=== PATIENT | female | born 1985 | race Caucasian/White ===

== ENCOUNTER 2021-09-13 22:36 | Inpatient (IN) | payer OTHER, SELFPAY ==
[2021-09-13 22:10] VITALS: BP 133/74; PULSE 96
[2021-09-13 22:11] VITALS: TEMP 36.5
[2021-09-13 22:15] VITALS: BMI 34.1
[2021-09-13 22:30] LABS: ROM Internal Control Test YES-OK TO RESULT pt. (Internal QC)
[2021-09-13 22:31] LABS: ROM Patient Test POSITIVE (Negative)
[2021-09-13] MEDS: Lactated Ringers 1,000 ML 999 ML IV (22:50)
[2021-09-13 22:53] VITALS: BP 125/74; PULSE 96; RESP 16; TEMP 37.2; O2SAT 98
[2021-09-13 22:54] VITALS: BP 125/74; PULSE 103; PULSE 95; O2SAT 98
[2021-09-13 23:07] LABS: Absolute Lymphocyte Count 2.49 X10^3/uL (0.83-4.51); Absolute Neutrophil Count 7.4 X10^3/uL (2.0-7.7); Basophil# 0.04 X10^3/uL; Basophil% 0.4 % (0-1); Eosinophil# 0.03 X10^3/uL; Eosinophils% 0.3 % (0-5); Hematocrit 34.5 % (37-47); Hemoglobin 10.6 g/dL (12.0-15.0); Lymphocyte # 2.49 X10^3/ul (0.83-4.51); Lymphocyte % 23.1 % (19-41); Mean Corp Hgb Conc 30.7 g/dL (32-36); Mean Corpuscular Hgb 24.3 pg (27.0-32.0); Mean Corpuscular Volume 78.9 fL (81-99); Mean Platelet Vol. 11.2 fl (6.2-12.0); Monocyte# 0.76 X10^3/uL; NRBC Flagged by Analyzer 0 % (0-5); Neutrophil # 7.41 X10^3/uL (2.7-7.7); Neutrophil % 68.6 % (47-70); Platelet Count 198 K/mm3 (150-450); RBC Distribution Width CV 14.6 % (11.6-14.6); RBC Distribution Width SD 41.9 fl (35.1-43.9); Red Blood Count 4.37 M/mm3 (4.2-5.4); White Blood Count 10.8 K/mm3 (4.4-11.0)
--- NOTE | 2021-09-13 23:30 | PCM.HP.BLA ---
History and Physical Date of Admission: 09/13/21 Pre-Op History and Physical ? HPI: The patient is a 35 year old female presenting for pre-operative visit. She is scheduled for , for h/o perineal trauma from last delivery, desires elective primary c/s on 09/15/21. Procedure discussed along with risks, benefits and complications. Other alternatives discussed for management. Consent form signed? Yes. ? ? PAST MEDICAL HISTORY PAST MEDICAL HISTORY Diagnosis Date ? Elevated glucose 06/28/2021 ? 06/28/21- elevated 1 hour- 3 hour pending. Colette Lambert APRN.MARCELLE ? Gestational diabetes mellitus, class A1 12/15/2016 ? Perineal repair breakdown 05/18/2017 ? ? PAST SURGICAL HISTORY PAST SURGICAL HISTORY Procedure Laterality Date ? D&C, DIAG AND/OR THERAPEUTIC ? 10/2020 ? INSERTION OF IUD ? ? ? removed ? PAST SURGICAL HISTORY OF ? ? ? wisdom teeth ? REPAIR VAGINAL PERINEUM PERINEORRAPHY ? 2017 ? ? ? CURRENT MEDICATIONS Current Outpatient Medications Medication Sig Dispense Refill ? blood sugar diagnostic test strip 1 Strip four times daily. Use as instructed 120 Strip 9 ? Lancets lancets 1 Each four times daily. Use as instructed 120 Each 9 ? Uwdthnzt-By-Orw-Fe-FA ( VITAMIN) tab Take 1 tablet by mouth once daily. 30 tablet 11 ? No current facility-administered medications for this visit. ? ? ALLERGIES: Patient has no known allergies. ? PERSONAL HISTORY: SOCIAL HISTORY Social History ? Tobacco Use ? Smoking status: Never Smoker ? Smokeless tobacco: Never Used Vaping Use ? Vaping Use: Never used Substance Use Topics ? Alcohol use: No ? Drug use: No ? FAMILY HISTORY: FAMILY HISTORY FAMILY HISTORY Problem Relation Age of Onset ? Breast Cancer Mother 50 ? Heart Attack Father ? ? No Known Problems Sister ? ? No Known Problems Sister ? ? Stroke Maternal Grandmother ? ? No Known Problems Maternal Grandfather ? ? Alzheimer's Disease Paternal Grandmother ? ? No Known Problems Paternal Grandfather ? ? No Known Problems Daughter ? ? ? REVIEW OF SYMPTOMS: GENERAL: denies fevers or chills ENDOCRINOLOGY: has not been on steroids Cardiology : denies palpitations or chest pain Respiratory: denies SOB or cough Hematology: denies history of prolonged bleeding or easy bruising or VTE Allergy: Denies history of personal or family history of allergy to anesthesia ? PHYSICAL EXAMINATION: ? VITALS: Blood pressure 134/82, weight 170 lb (77.1 kg), last menstrual period 12/16/2020, unknown if currently . ? GENERAL: The patient is well nourished, well hydrated in no acute distress. , The patient is oriented to time, place, and person. NECK: Supple. No lynphadenopathy, normal thyroid, no thyromegaly. LUNGS: Clear to auscultation bilaterally. no wheezes, rhonchi or rales HEART: Regular rate and rhythm, Normal heart sounds and No murmurs or gallops GENITALIA: Normal external genitalia, Urethral meatus normal, Bladder nontender, normal vagina and normal vaginal tone, normal cervix, normal uterus, size and consistency, normal adnexa without masses or tenderness and perineum WNL WET PREP: Not indicated ? IMPRESSION: Estimated Date of Delivery: 09/22/21 35 YOF , EFW larger than last delivery and h/o perineal trauma, delayed healing, desires primary c/s ? PLAN: The risks/benefits/alternatives and personal involved for the planned primary c/s were reviewed with the patient. Her questions were answered to her satisfaction and she desires to proceed. Consent was signed. I reviewed with her postop instructions and expectations. ? ? I have reviewed and updated past medical and surgical history, medications and allergies Sandra Guerrero M.D.
[2021-09-13] MEDS: Sodium Citrate/Citric Acid 30 ML UDC PO (23:48)
[2021-09-13] MEDS: Cefazolin 2 GM in 0.9% Normal Saline 100 ML IV (23:55)
[2021-09-14] VITALS (18 sets, daily range): BP systolic 99–130; BP diastolic 33–74; PULSE 71–88; RESP 13–28; TEMP 36.1–36.8; O2SAT 96–100
--- NOTE | 2021-09-14 00:43 | OP.PCM_ITS ---
Details Operative Information Date of Procedure: 09/14/21 Pre-Operative Diagnosis: gdma 1, h/o maternal laceration, elective primary cs, SROM, Post-Operative Diagnosis: same, live male Indications Narrative: h/o perineal laceration with previous delivery delayed wound healing, EFW larger then previous, GDMA1, elecative primary cs Classification: Scheduled Procedure Type: low transverse audiometrist #1: Simin Graham Type of Anesthesia: Spinal Antibiotic Given: Ancef 2 grams IV x1 Drain: Anderson to straight drain Estimated Blood Loss: 600 Fluids Replaced: 1000 Procedure Start Time: 00:08 Procedure Stop Time: 00:44 Time of Delivery: 00:12 Findings Description of Procedure: After informed consent was obtained the patient was taken the operating room she was given spinal anesthesia. She was then placed in the supine position. She was prepped and draped in the normal sterile fashion. Anesthesia was found to be adequate. At this time a Pfannenstiel skin incision was made with a knife was carried down to the underlying layer of the fascia. The fascial incision was then extended laterally using curved Cherry scissor. Attention was then turned to the superior aspect of the fascial edge was grasped with 2 straight [place] clamps tented up and the rectus muscle dissected off sharply using curved Cherry scissor. Attention was then turned to the inferior aspect where again Ashli clamps were placed in the rectus muscles were tented up and the fascia was dissected off sharply using the curved Cherry scissor. Rectus muscles were then in the midline bluntly and peritoneum was entered bluntly. Gentle opposing traction was placed. At this time the vesicouterine peritoneum was identified. Scalpel was used to make a uterine incision in a low transverse fashion. The uterus was then entered bluntly gentle opposing traction was placed to extend this incision. Membranes were ruptured clear. 's head was brought to the uterine incision- nuchal x3 noted- reduced and the rest of infant was delivered atraumatically. delayed cord clamping. mouth and nose suctioned. Cord was clamped and cut infant was handed to the waiting nursery team. The Placenta was removed from the uterus. The uterus was then removed from the abdominal cavity. The uterus was cleared of all clots and debris using a lap. At this time the uterine incision was reapproximated using #1 Vicryl in a running locked fashion followed by a second layer with 1-0 vicryl. Hemostasis was appreciated. Posterior cul-de-sac was then cleared of all clots and debris. Uterus was placed back in the abdominal cavity. Gutters were cleared of all clots and debris. Uterine incision was reevaluated and noted to be of excellent hemostasis. At this time the peritoneum and muscle were grasped with Kellys reapproximated using #2 Vicryl suture in a running fashion. Fascia was then reapproximated using #1 Vicryl in a running fashion. Subcu layer was reapproximated with #2 0 plain gut suture in an interrupted fashion. Subcu layer was closed using 4-0 Monocryl in a subcu fashion. Dry sterile dressing was applied. Instrument lap needle count correct ?2. Anticipated normal postoperative course. Presentation: Positive for Vertex Amniotic Membrane Rupture Type: Spontaneous Amniotic Fluid Description: Clear Placental Delivery Description: Expressed Placenta Disposition: [facility] Cord Vessel Description: 3 Vessels Cord Entanglement: - (around neck x3- tight) Nuchal Cord Compression: Without compression A Gender: Male (1 minute): 8 (5 minute): 10 Delayed Cord Clamping: Yes Complications Risks of Surgery Discussed w/Patient: Bleeding, Anesthesia Risks, Infection and Injury to surrounding structure(s) including bowel and bladder
[2021-09-14] MEDS: Oxytocin 30 units/NS 500 ml 30 UNITS/500 ML IV.SOLN 167 UNITS IV (00:55)
[2021-09-14 01:15] LABS: Bedside Glucose 74 mg/dL (74-106)
[2021-09-14 01:15] LABS: Bedside Glucose 80 mg/dL (74-106)
[2021-09-14] MEDS: Ketorolac 30 MG/ML Syringe IV ×3 (03:11→21:01)
[2021-09-14] MEDS: Acetaminophen 500 MG Tablet 1000 MG PO ×4 (03:11→23:41)
[2021-09-14] MEDS: Lactated Ringers 1,000 ML 100 ML IV (03:55)
[2021-09-14] MEDS: Senna/Docusate Sodium 1 Tablet PO (09:08)
[2021-09-14] MEDS: 0.9% Saline Lock 10 ML Syringe IV ×2 (09:09→21:01)
--- NOTE | 2021-09-14 18:51 | NURSING ---
held toradol due to low urine output after mclaughlin d/c'd. Encouraged po fluids.
[2021-09-15 01:20] VITALS: BP 124/67; PULSE 74; RESP 14; TEMP 36.5; O2SAT 98
[2021-09-15] MEDS: Ibuprofen 600 MG Tablet PO ×4 (03:12→21:33)
[2021-09-15] MEDS: Acetaminophen 500 MG Tablet 1000 MG PO ×3 (05:55→18:20)
[2021-09-15 06:28] LABS: Hematocrit 28.6 % (37-47); Hemoglobin 8.7 g/dL (12.0-15.0); Mean Corp Hgb Conc 30.4 g/dL (32-36); Mean Corpuscular Hgb 24.4 pg (27.0-32.0); Mean Corpuscular Volume 80.1 fL (81-99); Mean Platelet Vol. 11.1 fl (6.2-12.0); Platelet Count 161 K/mm3 (150-450); RBC Distribution Width CV 14.6 % (11.6-14.6); RBC Distribution Width SD 42.6 fl (35.1-43.9); Red Blood Count 3.57 M/mm3 (4.2-5.4); White Blood Count 10.8 K/mm3 (4.4-11.0)
[2021-09-15 06:41] LABS: Bedside Glucose 93 mg/dL (74-106)
--- NOTE | 2021-09-15 06:59 | NURSING ---
All charting by Morales Puente RN reviewed by this preceptor RN.
--- NOTE | 2021-09-15 07:44 | PCM.PN.OB ---
Subjective Subjective Pain well controlled. Average lochia. Positive flatus no bowel movement yet. Ambulating and tolerating regular diet. Objective Data Objective Data Vital Signs: Vital Signs Temp Pulse Resp BP Pulse Ox O2 Del Method 97.7 F L 74 14 124/67 H 98 Room Air 09/15/21 01:20 09/15/21 01:20 09/15/21 01:20 09/15/21 01:20 09/15/21 01:20 09/15/21 01:20 Oxygen Delivery Method Room Air Weight: 76.657 kg Body Mass Index (BMI) 34.1 Intake & Output: Intake and Output for Last 24 Hours 09/13/21 09/14/21 09/15/21 23:59 23:59 23:59 Intake Total 2151.67 / 2151.67 Output Total 1100 / 1100 Balance 1051.67 / 1051.67 Lab / Micro Data Result Diagrams: 09/15/21 06:20 Labs: Laboratory Results - last 24 hr 09/15/21 05:58: POC Glucose 93 09/15/21 06:20: WBC 10.8, RBC 3.57 L, Hgb 8.7 L, Hct 28.6 L, MCV 80.1 L, MCH 24.4 L, MCHC 30.4 L, RDW Std Deviation 42.6, RDW Coeff of Kush 14.6, Plt Count 161, MPV 11.1 Micro: Microbiology 09/13/21 22:55 Nasal Secretion SARS-CoV-2 Antigen (Rapid) - Final Physical Exam Const alert General Appearance: cooperative GI GI Narrative: soft, moderate distention, fundus firm, appropriately tender. Abdominal bandage clean dry and intact Assessment & Plan (1) delivery delivered: PLAN: Postoperative day #2 status post primary section. Patient and are doing well. Patient is working on breast-feeding. She desires discharge home today.
--- NOTE | 2021-09-15 07:45 | PCM.DC.SUM ---
Providers Date of Admission: 09/13/21 Primary Care Physician: Shelby Primary Care Phys Reason For Visit: LABOR Diagnosis Discharge Diagnosis (1) delivery delivered: Status: Acute Code(s): O82 - Encounter for delivery without indication Plan: Postoperative day #2 status post primary section. Patient and are doing well. Patient is working on breast-feeding. She desires discharge home today. Medications at Discharge Home Medications ndnyrkkf-dcy-Vj-FA 1 mg tablet 1 tab PO DAILY 09/13/21 ferrous sulfate 325 mg (65 mg iron) tablet (FeroSul) 325 mg PO DAILY #30 tabs 09/15/21 ibuprofen 600 mg tablet 600 mg PO Q6H PRN PRN pain #60 TABLETS 09/15/21 Hospital Course Operations - (Primary low transverse section on 09/13/2021) Procedures None Summary of Care Provided Hospital Course: 35-year-old multigravida admitted for spontaneous labor. Desired section due to perineal trauma and delayed wound healing after her last delivery. The primary section was performed without difficulty on 09/13/2021. She had mild acute blood loss anemia superimposed on chronic antepartum anemia. Blood loss was appropriate for surgery. She was discharged home on postoperative day #2 with routine instructions and prescriptions. Physical Exam Const alert General Appearance: cooperative GI GI Narrative: soft, moderate distention, fundus firm, appropriately tender. Abdominal bandage clean dry and intact Weight / BMI Weight Weight: 76.657 kg Body Mass Index (BMI) 34.1 ABG / Lab / Microbiology Data Result Diagrams: 09/15/21 06:20 Laboratory: Laboratory Results - last 24 hr 09/15/21 05:58: POC Glucose 93 09/15/21 06:20: WBC 10.8, RBC 3.57 L, Hgb 8.7 L, Hct 28.6 L, MCV 80.1 L, MCH 24.4 L, MCHC 30.4 L, RDW Std Deviation 42.6, RDW Coeff of Kush 14.6, Plt Count 161, MPV 11.1 Microbiology: Microbiology 09/13/21 22:55 Nasal Secretion SARS-CoV-2 Antigen (Rapid) - Final Meaningful Use Info Meaningful Use Diagnoses (Choose all that apply): None applicable Discharge Plan Admission Admit Date/Time: 09/13/21 22:36 Primary Reason for Your Visit: Attending Provider: Kayla Cho Primary Care Provider: Care Physician,No Primary Discharge Orders/Prescriptions Prescriptions: New ferrous sulfate [FeroSul] 325 mg (65 mg iron) tablet 325 mg PO DAILY Qty: 30 1RF ibuprofen 600 mg tablet 600 mg PO Q6H PRN PRN (Reason: pain) Qty: 60 1RF No Action 1 mg Tablet 1 tab PO DAILY Referrals / Follow Up: Care Physician,No Primary [Primary Care Provider] - Disposition Disposition (needs filled in before D/C Order can be placed): Home, Self Care
[2021-09-15 08:07] VITALS: BP 126/70; PULSE 78; RESP 16; TEMP 36.6; O2SAT 100
[2021-09-15] MEDS: Senna/Docusate Sodium 1 Tablet PO (09:03)
[2021-09-15 16:43] VITALS: BP 124/71; PULSE 81; RESP 16; TEMP 36.5; O2SAT 100
[2021-09-15 20:05] VITALS: BP 121/71; PULSE 89; RESP 18; TEMP 36.4; O2SAT 100
[2021-09-16] MEDS: Acetaminophen 500 MG Tablet 1000 MG PO ×2 (00:36→06:37)
[2021-09-16 02:00] VITALS: BP 127/71; PULSE 79; RESP 16; TEMP 36.6; O2SAT 100
[2021-09-16] MEDS: Ibuprofen 600 MG Tablet PO ×2 (03:59→10:07)
--- NOTE | 2021-09-16 08:31 | PCM.PROGNOTE ---
Subjective Subjective patient seen at bedside, doing well. Patient reports good pain control. lochia mild. Objective Data Objective Data Vital Signs: Vital Signs Temp Pulse Resp BP Pulse Ox O2 Del Method 97.8 F 79 16 127/71 H 100 Room Air 09/16/21 02:00 09/16/21 02:00 09/16/21 02:00 09/16/21 02:00 09/16/21 02:00 09/16/21 02:00 Oxygen Delivery Method Room Air Weight: 76.657 kg Body Mass Index (BMI) 34.1 Intake & Output: Intake and Output for Last 24 Hours 09/14/21 09/15/21 09/16/21 23:59 23:59 23:59 Intake Total 2151.67 / 2151.67 Output Total 1100 / 1100 Balance 1051.67 / 1051.67 Lab / Micro Data Result Diagrams: 09/15/21 06:20 Micro: Microbiology 09/13/21 22:55 Nasal Secretion SARS-CoV-2 Antigen (Rapid) - Final Physical Exam Narrative dressing dry and intact Const alert and oriented x3 General Appearance: cooperative HEENT normocephalic Neck General: normal visual inspection GI soft to palpation and non-distended GI Narrative: Fundus firm Extremity normal to inspection and no calf tenderness Skin no rashes or lesions noted Neuro oriented x3 and CN's II-XII intact bilaterally Psych mental status grossly normal Assessment & Plan Assessment/Plan (1) delivery delivered: PLAN: Plan POD# 2 , Doing well Routine care pain mgmt monitor VS ambulation dc home
--- NOTE | 2021-09-16 08:32 | DCINST_ITS ---
Discharge Instructions Procedure Diet Discharge Diet: No restrictions Activity May resume sexual activity in: 6-8 weeks Lifting Restrictions: 25 Dressing / Incision Call your doctor if your incision/area has: Continuous Slow Oozing, Sudden Increased Bleeding, Increased Pain/ Swelling, Increased Redness, Foul Smelling Discharge and Swelling at the incision site Call your doctor if you observe: Fever of 101 or Higher, Inability to urinate, Using more than 1 pad per hour and Uncontrolled pain Additional Dressing/Incision Instructions:: remove dressing at 7 days post op- if it becomes saturated prior to that time you may remove it. Let soap and water run over incision sites and dab dry. keep incision clean and dry. Follow Up Care Please Follow Up With: Kayla Cho MD When: 1-2 weeks post of incision check and again at 6 weeks post . [phone] Test Results: Test results from this visit will be discussed in further detail at your follow- up appointment, if applicable. Discharge Plan Admission Admit Date/Time: 09/13/21 22:36 Primary Reason for Your Visit: Attending Provider: Kayla Cho Primary Care Provider: Care Shelby Woods Primary Discharge Orders/Prescriptions Prescriptions: New ferrous sulfate [FeroSul] 325 mg (65 mg iron) tablet 325 mg PO DAILY Qty: 30 1RF ibuprofen 600 mg tablet 600 mg PO Q6H PRN PRN (Reason: pain) Qty: 60 1RF acetaminophen 500 mg Tablet 1,000 mg PO Q6 Qty: 0 0RF ibuprofen 600 mg Tablet 600 mg PO Q6H Qty: 0 0RF Continued qtmerjmo-oco-Tk-FA 1 mg Tablet 1 tab PO DAILY Referrals / Follow Up: Care PhysicianShelby Primary [Primary Care Provider] - Disposition Disposition (needs filled in before D/C Order can be placed): Home, Self Care
[2021-09-16 08:44] VITALS: BP 133/75; PULSE 96; RESP 18; TEMP 36.5; O2SAT 99
--- NOTE | 2021-09-16 08:45 | PCM.DC.BLA ---
Discharge Summary Date of Admission: 09/13/21 Date of Discharge: 09/16/21 Summary: pt admitted for SROM, early labor- elective primary cs due to h/o perinal laceration with delayed wound healing. Pt had LTCS by Dr. Cobb- did well post op and discharged on Post op day 2. Meaningful Use Info Meaningful Use Diagnoses (Choose all that apply): None applicable Discharge Plan Admission Admit Date/Time: 09/13/21 22:36 Primary Reason for Your Visit: Attending Provider: Kayla Cho Primary Care Provider: Care Physician,Shelby Primary Discharge Orders/Prescriptions Prescriptions: New ferrous sulfate [FeroSul] 325 mg (65 mg iron) tablet 325 mg PO DAILY Qty: 30 1RF ibuprofen 600 mg tablet 600 mg PO Q6H PRN PRN (Reason: pain) Qty: 60 1RF acetaminophen 500 mg Tablet 1,000 mg PO Q6 Qty: 0 0RF ibuprofen 600 mg Tablet 600 mg PO Q6H Qty: 0 0RF Continued vbcxccbe-fte-Ge-FA 1 mg Tablet 1 tab PO DAILY Referrals / Follow Up: Care Physician,No Primary [Primary Care Provider] - Disposition Disposition (needs filled in before D/C Order can be placed): Home, Self Care
[2021-09-16] MEDS: Senna/Docusate Sodium 1 Tablet PO (10:07)
== END 2021-09-16 10:49 | disposition home or self-care (01) | DRG 787 ==
LOC: WPOUT 22:37 → WP 22:37
PROVIDERS: Admitting Provider Obstetrics & Gynecology; Visit Provider Obstetrics & Gynecology
DX: O24.429 Gestational diabetes mellitus in childbirth, unspecified control (principal); D62 Acute posthemorrhagic anemia; O69.81X0 Labor and delivery complicated by cord around neck, without compression, not applicable or unspecified; Z37.0 Single live birth; O99.02 Anemia complicating childbirth; Z3A.39 39 weeks gestation of pregnancy
CPT/HCPCS: 59025; 59050; 82962; 84112; 85025; 85027; 86850; 86900; 86901; 87811; 99218; J7120; A4216; G0378